=== PATIENT | male | born 1985 | race Caucasian/White ===

== ENCOUNTER 2020-02-05 22:59 | Emergency (ER) | payer MEDICAID ==
[~2020-02-05] VITALS: Ht 182.9 cm; Wt 99.8 kg
[2020-02-06 00:56] LABS: Urine Bacteria NONE SEEN /hpf (None Seen); Urine Blood Negative /uL (Negative); Urine Specific Gravity 1.013 (1.001-1.035); Urine WBC <1 /hpf (0 - 3)
[2020-02-06 01:10] LABS: Alcohol, Urine < 3.0 mg/dL (0-10); Amphetamine Screen, Urine NEGATIVE (NEGATIVE); Barbiturate Scree,Urine NEGATIVE (NEGATIVE); Benzodiazephine Screen, Urine NEGATIVE (NEGATIVE); Cannabinoid Screen, Urine NEGATIVE (NEGATIVE); Cocaine Screen, Urine NEGATIVE (NEGATIVE); Opiate Scree,Urine NEGATIVE (NEGATIVE); Phencyclidine Screen, Urine NEGATIVE (NEGATIVE)
[2020-02-06 02:31] LABS: Basophils # (auto) 0.1 10 ^3/uL (0-0.2); Basophils % (auto) 0.8 % (0.0-2.0); Eosinophils # (auto) 0.2 10 ^3/uL (0-0.8); Eosinophils % (auto) 2.4 % (0.0-7.0); Hematocrit 49.6 % (41.0-53.0); Hemoglobin 17.4 g/dL (13.5-17.5); Lymphocytes # (auto) 3.7 10 ^3/uL (0.4-5.4); Lymphocytes % (auto) 41.3 % (10.0-50.0); Mean Corpuscular Hemoglobin 30.7 pg (28.0-32.0); Mean Corpuscular Volume 87.8 fL (80.0-100.0); Monocytes # (auto) 0.6 10 ^3/uL (0-1.3); Neutrophils # (auto) 4.4 10 ^3/uL (1.6-8.6); Neutrophils % (auto) 48.5 % (37.0-80.0); Nucleated Red Blood Cells % 0.1 %; Platelet Count (auto) 234 10^3/uL (140-450); Red Blood Cells 5.65 10^6/uL (4.5-5.90); Red Cell Distribution Width 13.3 % (11.8-14.3); White Blood Cell 9.1 10^3/uL (4.4-10.8)
[2020-02-06 02:47] LABS: INR 1.03 (0.9-1.15); Partial Thromboplastin Time 26.8 sec (23.64-32.05)
[2020-02-06 02:49] LABS: Alanine Aminotransferase 102 U/L (16-61); Albumin 4.2 g/dL (3.4-5.0); Anion Gap 8 (5-15); Aspartate Aminotransferase 29 U/L (15-37); Blood Urea Nitrogen 15 mg/dL (7-18); Calcium 8.7 mg/dL (8.5-10.1); Carbon Dioxide 24 mmol/L (21-32); Chloride 107 mmol/L (98-107); GFR African American 93 mL/min; GFR Non-African American 77 mL/min; Glucose 90 mg/dL (74-106); Magnesium 2.4 mg/dL (1.6-2.6); Sodium 139 mmol/L (136-145)
[2020-02-06 02:55] LABS: Alkaline Phosphatase 61 U/L (45-117); Bilirubin, Total 0.8 mg/dL (0.2-1.0); Total Protein 7.6 g/dL (6.4-8.2)
[2020-02-06 03:15] VITALS: BP 126/85
== END 2020-02-06 03:24 | disposition home or self-care (01) ==
LOC: ER 23:01
DX: K21.9 Gastro-esophageal reflux disease without esophagitis (principal); R07.2 Precordial pain; I10 Essential (primary) hypertension; F41.9 Anxiety disorder, unspecified; E78.5 Hyperlipidemia, unspecified
CPT/HCPCS: 36415; 71046; 80053; 80307; 81001; 83735; 83880; 84443; 84484; 85025; 85379; 85610; 85730; 93005